=== PATIENT | female | born 1985 | race Hispanic/Latino ===

== ENCOUNTER 2020-01-21 14:09 | Day surgery (SDC) | payer SELFPAY ==
[2020-01-21] MEDS ORDERED: Lactated Ringers 1,000 ML IV SCH (14:30)
--- NOTE | 2020-01-21 15:07 | PCM.PREANE ---
Preanesthetic Assessment - Anesthesia/Transfusion/Family Hx Anesthesia History: No Prior Anesthesia Family History of Anesthesia Reaction: No Transfusion History: No Prior Transfusion(s) - Review of Systems General: No Symptoms Pulmonary: No Symptoms Cardiovascular: No Symptoms Neurological: No Symptoms Other: Reports: None - Physical Assessment NPO Status Date: 01/20/20 Height: 5 ft 1 in Weight: 60.781 kg ASA Class: 1 Mental Status: Alert & Oriented x3 Airway Class: Mallampati = 2 Dentition: Reports: Normal Dentition ROM/Head Extension: Full Lungs: Clear to Auscultation, Normal Respiratory Effort Cardiovascular: Regular Rate, Regular Rhythm - Lab Values: Laboratory Last Values WBC 8.81 K/uL (4.0-11.0) 01/21/20 14:40 RBC 3.91 M/uL (4.30-5.90) L 01/21/20 14:40 Hgb 12.2 g/dL (12.0-16.0) 01/21/20 14:40 Hct 36.9 % (36.0-46.0) 01/21/20 14:40 MCV 94.4 fL (80.0-98.0) 01/21/20 14:40 MCH 31.2 pg (27.0-32.0) 01/21/20 14:40 MCHC 33.1 g/dL (31.0-37.0) 01/21/20 14:40 RDW Std Deviation 43.0 fl (28.0-62.0) 01/21/20 14:40 RDW Coeff of Marcella 13 % (11.0-15.0) 01/21/20 14:40 Plt Count 241 K/uL (150-400) 01/21/20 14:40 MPV 9.60 fL (7.40-12.00) 01/21/20 14:40 Neut % (Auto) 77.2 % (48.0-80.0) 01/21/20 14:40 Lymph % (Auto) 18.2 % (16.0-40.0) 01/21/20 14:40 [place] % (Auto) 4.3 % (0.0-15.0) 01/21/20 14:40 Eos % (Auto) 0.2 % (0.0-7.0) 01/21/20 14:40 Baso % (Auto) 0.1 % (0.0-1.5) 01/21/20 14:40 Neut # (Auto) 6.8 K/uL (1.4-5.7) H 01/21/20 14:40 Lymph # (Auto) 1.6 K/uL (0.6-2.4) 01/21/20 14:40 [place] # (Auto) 0.4 K/uL (0.0-0.8) 01/21/20 14:40 Eos # (Auto) 0.0 K/uL (0.0-0.7) 01/21/20 14:40 Baso # (Auto) 0.0 K/uL (0.0-0.1) 01/21/20 14:40 Nucleated RBC % 0.0 /100WBC 01/21/20 14:40 Nucleated RBCs # 0 K/uL 01/21/20 14:40 - Allergies Allergies/Adverse Reactions: Allergies Allergy/AdvReac Type Severity Reaction Status Date / Time No Known Allergies Allergy Verified 01/21/20 14:37 - Anesthesia Plan Pre-Op Medication Ordered: None - Acknowledgements Anesthesia Type Planned: General Anesthesia Pt an Appropriate Candidate for the Planned Anesthesia: Yes Alternatives and Risks of Anesthesia Discussed w Pt/Guardian: Yes Pt/Guardian Understands and Agrees with Anesthesia Plan: Yes Additional Comments: PMH: tubal ectopic on R PLAN: GET PreAnesthesia Questionnaire Cardiovascular History: Reports: Other (See Below) Other Cardiovascular History: hypertensive during last Gastrointestinal History: Reports: Other (See Below) Other Gastrointestinal History: occasional heartburn Genitourinary History: Reports: UTI, Recurrent 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 [No Known Home Meds] 01/21/20 [History] - CURRENT (IN HOUSE) MEDS Current Meds: Current Medications Lactated Ringer's (Ringers, Lactated) 1,000 mls @ 125 mls/hr IV ASDIRECTED JAMAL Last Admin: 01/21/20 14:58 Dose: 125 mls/hr
[2020-01-21] MEDS ORDERED: Midazolam 1 MG/ML 2 ML SDV ONE (15:08)
[2020-01-21] MEDS ORDERED: fentaNYL 250 MCG/5 ML SDV ONE (15:08)
[2020-01-21] MEDS ORDERED: Propofol 200 MG/20 ML SDV ONE (15:08)
[2020-01-21] MEDS ORDERED: Lidocaine 2% 5 ML SDV ONE ×2 (15:08→15:42)
[2020-01-21] MEDS ORDERED: Rocuronium 100 MG/10 ML Syringe ONE (15:10)
[2020-01-21] MEDS ORDERED: Dexamethasone 4 MG/ML 5 ML MDV ONE (15:56)
[2020-01-21] MEDS ORDERED: Ondansetron 4 MG/2 ML SDV ONE (15:56)
[2020-01-21] MEDS ORDERED: Sugammadex Sodium 200 MG/2 ML VIAL ONE (16:00)
[2020-01-21] MEDS ORDERED: Octyl 2-Cyanoacrylate 1 Tube ONE ×2 (16:08→16:12)
--- NOTE | 2020-01-21 16:20 | PCM.HP.2 ---
H&P History of Present Illness - General Date of Service: 01/21/20 Admit Problem/Dx: Admission Diagnosis/Problem Admission Diagnosis/Problem Tubal ectopic Source of Information: Patient History Limitations: Reports: No Limitations - History of Present Illness Improves with: Reports: None Worsens with: Reports: None Associated Symptoms: Reports: No Other Symptoms - Related Data Allergies/Adverse Reactions: Allergies Allergy/AdvReac Type Severity Reaction Status Date / Time No Known Allergies Allergy Verified 01/21/20 14:37 Home Medications: Home Meds . 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: - Past Surgical History Head Surgeries/Procedures: Reports: None Social & Family History - Tobacco Use Smoking Status *Q: Never Smoker - Recreational Drug Use Recreational Drug Use: No Drug Use in Last 12 Months: No H&P Review of Systems - Review of Systems: Review Of Systems: See Below General: Reports: No Symptoms HEENT: Reports: No Symptoms Pulmonary: Reports: No Symptoms Cardiovascular: Reports: No Symptoms Gastrointestinal: Reports: No Symptoms Genitourinary: Reports: No Symptoms Musculoskeletal: Reports: No Symptoms Skin: Reports: No Symptoms Psychiatric: Reports: No Symptoms Neurological: Reports: No Symptoms Hematologic/Lymphatic: Reports: No Symptoms Immunologic: Reports: No Symptoms Exam - Exam Exam: See Below - Vital Signs Vital Signs: Last Vital Signs Temp 36.9 C 01/21/20 15:04 Pulse 89 01/21/20 15:04 Resp 16 01/21/20 15:04 BP 128/69 01/21/20 15:04 Pulse Ox 99 01/21/20 15:04 Weight: 60.781 kg - Exam General: Alert, Oriented, 4 HEENT: PERRLA, Hearing Intact, Mucosa Moist & [place], Nares Patent, Normal Nasal Septum, Posterior Pharynx Clear, Conjunctiva Clear, EOMI, EACs Clear, TMs Clear Neck: Supple, Trachea Midline, 2 Lungs: Clear to Auscultation, Normal Respiratory Effort Cardiovascular: Regular Rate, Regular Rhythm GI/Abdominal Exam: Normal Bowel Sounds, Soft, Non-Tender, No Organomegaly, No Distention, No Abnormal Bruit, No Mass, Pelvis Stable (Female) Exam: Normal External Exam, Normal Speculum Exam, Normal Bimanual Exam Rectal (Female) Exam: Normal Exam, Normal Rectal Tone Back Exam: Normal Inspection, Full Range of Motion, NT Extremities: Normal Inspection, Normal Range of Motion, Non-Tender, No Pedal Edema, Normal Capillary Refill Skin: Warm, Dry, Intact Neurological: Cranial Nerves Intact, Reflexes Equal Bilateral Neuro Extensive - Mental Status: Alert, Oriented x3, Normal Mood/Affect, Normal Cognition Neuro Extensive - Motor, Sensory, Reflexes: CN II-XII Intact, Normal Gait, Normal Reflexes Psychiatric: Alert, Normal Affect, Normal Mood - Patient Data Lab Results Last 24 hrs: Laboratory Results - last 24 hr 01/21/20 01/21/20 Range/Units 14:40 14:40 WBC 8.81 (4.0-11.0) K/uL RBC 3.91 L (4.30-5.90) M/uL Hgb 12.2 (12.0-16.0) g/dL Hct 36.9 (36.0-46.0) % MCV 94.4 (80.0-98.0) fL MCH 31.2 (27.0-32.0) pg MCHC 33.1 (31.0-37.0) g/dL RDW Std Deviation 43.0 (28.0-62.0) fl RDW Coeff of Marcella 13 (11.0-15.0) % Plt Count 241 (150-400) K/uL MPV 9.60 (7.40-12.00) fL Neut % (Auto) 77.2 (48.0-80.0) % Lymph % (Auto) 18.2 (16.0-40.0) % [place] % (Auto) 4.3 (0.0-15.0) % Eos % (Auto) 0.2 (0.0-7.0) % Baso % (Auto) 0.1 (0.0-1.5) % Neut # (Auto) 6.8 H (1.4-5.7) K/uL Lymph # (Auto) 1.6 (0.6-2.4) K/uL [place] # (Auto) 0.4 (0.0-0.8) K/uL Eos # (Auto) 0.0 (0.0-0.7) K/uL Baso # (Auto) 0.0 (0.0-0.1) K/uL Nucleated RBC % 0.0 /100WBC Nucleated RBCs # 0 K/uL Blood Type O POSITIVE Antibody Screen NEGATIVE Result Diagrams: 01/21/20 14:40 Sepsis Event Note - Focused Exam Vital Signs: Vital Signs Temp Pulse Resp BP Pulse Ox 01/21/20 15:04 36.9 C 89 16 128/69 99 Date Exam was Performed: 01/21/20 Time Exam was Performed: 16:19 Problem List Initiated/Reviewed/Updated: Yes Orders Last 24hrs: Active Orders 24 hr Category Date Time Status Patient Status [ADT] Routine ADT 01/21/20 16:17 Ordered Lactated Ringers [Ringers, Lactated] 1,000 ml Med 01/21/20 14:30 Active IV ASDIRECTED Resuscitation Status Routine Resus Stat 01/21/20 16:17 Ordered Medication Orders Lactated Ringer's (Ringers, Lactated) 1,000 mls @ 125 mls/hr IV ASDIRECTED JAMAL Last Admin: 01/21/20 14:58 Dose: 125 mls/hr Assessment/Plan Comment:: R. Tubal .
--- NOTE | 2020-01-21 16:21 | PCM.OPNOTE ---
- General Post-Op/Procedure Note Date of Surgery/Procedure: 01/21/20 Operative Procedure(s): Dignostc laorescopy, R.salpengectomy. Pre Op Diagnosis: R.tubal . Post-Op Diagnosis: Same Anesthesia Technique: General ET Tube Primary Surgeon: Chaim Machuca EBL in mLs: 100 Complications: None Condition: Good
--- NOTE | 2020-01-21 16:22 | PCM.DCSUM1 ---
Discharge Summary - Hospital Course Diagnosis: Stroke: No - Discharge Data Discharge Date: 01/21/20 Discharge Disposition: Home, Self-Care 01 Condition: Good - Referral to Home Health Primary Care Physician: PCP None - Patient Summary/Data Operative Procedure(s) Performed: Dignostc laorescopy, R.salpengectomy. - Patient Instructions Diet: Usual Diet as Tolerated Activity: As Tolerated Driving: Do Not Drive Showering/Bathing: May Shower Wound/Incision Care: Keep Operative Site/Wound Site Clean and Dry - Discharge Plan Home Medications: Home Meds . [No Known Home Meds] 01/21/20 [History] - Discharge Summary/Plan Comment DC Time >30 min.: Yes - General Info Date of Service: 01/21/20 Functional Status: Reports: Pain Controlled - Review of Systems General: Reports: No Symptoms HEENT: Reports: No Symptoms Pulmonary: Reports: No Symptoms Cardiovascular: Reports: No Symptoms Gastrointestinal: Reports: No Symptoms Genitourinary: Reports: No Symptoms Musculoskeletal: Reports: No Symptoms Skin: Reports: No Symptoms Neurological: Reports: No Symptoms Psychiatric: Reports: No Symptoms - Patient Data Vitals - Most Recent: Last Vital Signs Temp 36.9 C 01/21/20 15:04 Pulse 89 01/21/20 15:04 Resp 16 01/21/20 15:04 BP 128/69 01/21/20 15:04 Pulse Ox 99 01/21/20 15:04 Weight - Most Recent: 60.781 kg Lab Results - Last 24 hrs: Laboratory Results - last 24 hr 01/21/20 01/21/20 Range/Units 14:40 14:40 WBC 8.81 (4.0-11.0) K/uL RBC 3.91 L (4.30-5.90) M/uL Hgb 12.2 (12.0-16.0) g/dL Hct 36.9 (36.0-46.0) % MCV 94.4 (80.0-98.0) fL MCH 31.2 (27.0-32.0) pg MCHC 33.1 (31.0-37.0) g/dL RDW Std Deviation 43.0 (28.0-62.0) fl RDW Coeff of Marcella 13 (11.0-15.0) % Plt Count 241 (150-400) K/uL MPV 9.60 (7.40-12.00) fL Neut % (Auto) 77.2 (48.0-80.0) % Lymph % (Auto) 18.2 (16.0-40.0) % [place] % (Auto) 4.3 (0.0-15.0) % Eos % (Auto) 0.2 (0.0-7.0) % Baso % (Auto) 0.1 (0.0-1.5) % Neut # (Auto) 6.8 H (1.4-5.7) K/uL Lymph # (Auto) 1.6 (0.6-2.4) K/uL [place] # (Auto) 0.4 (0.0-0.8) K/uL Eos # (Auto) 0.0 (0.0-0.7) K/uL Baso # (Auto) 0.0 (0.0-0.1) K/uL Nucleated RBC % 0.0 /100WBC Nucleated RBCs # 0 K/uL Blood Type O POSITIVE Antibody Screen NEGATIVE Med Orders - Current: Current Medications Lactated Ringer's (Ringers, Lactated) 1,000 mls @ 125 mls/hr IV ASDIRECTED JAMAL Last Admin: 01/21/20 14:58 Dose: 125 mls/hr Discontinued Medications Dexamethasone (Dexamethasone) Confirm Administered Dose 20 mg .ROUTE .STK-MED ONE Stop: 01/21/20 15:57 Fentanyl (Sublimaze) Confirm Administered Dose 250 mcg .ROUTE .STK-MED ONE Stop: 01/21/20 15:09 Acetaminophen (Ofirmev) Confirm Administered Dose 100 mls @ as directed .ROUTE .STK-MED ONE Stop: 01/21/20 15:59 Lidocaine (Xylocaine-Mpf 2%) Confirm Administered Dose 5 ml .ROUTE .STK-MED ONE Stop: 01/21/20 15:09 Lidocaine (Xylocaine-Mpf 2%) Confirm Administered Dose 5 ml .ROUTE .STK-MED ONE Stop: 01/21/20 15:43 Midazolam HCl (Versed 1 Mg/Ml) Confirm Administered Dose 2 mg .ROUTE .STK-MED ONE Stop: 01/21/20 15:09 Octyl Cyanoacrylate (Dermabond Advance) Confirm Administered Dose 1 applic .ROUTE .STK-MED ONE Stop: 01/21/20 16:09 Octyl Cyanoacrylate (Dermabond Advance) Confirm Administered Dose 1 applic .ROUTE .STK-MED ONE Stop: 01/21/20 16:13 Ondansetron HCl (Zofran) Confirm Administered Dose 4 mg .ROUTE .STK-MED ONE Stop: 01/21/20 15:57 Propofol (Diprivan 20 Ml) Confirm Administered Dose 200 mg .ROUTE .STK-MED ONE Stop: 01/21/20 15:09 Rocuronium [place] (Zemuron) Confirm Administered Dose 100 mg .ROUTE .STK-MED ONE Stop: 01/21/20 15:11 Sugammadex Sodium (Bridion) Confirm Administered Dose 200 mg .ROUTE .STK-MED ONE Stop: 01/21/20 16:01 Tranexamic Acid (Cyklokapron) Confirm Administered Dose 1,000 mg .ROUTE .STK- MED ONE Stop: 01/21/20 15:59 - Exam General: Reports: Alert, Oriented HEENT: Reports: Pupils Equal, Pupils Reactive, EOMI, Mucous Membr. Moist/[place] Neck: Reports: Supple Lungs: Reports: Clear to Auscultation, Normal Respiratory Effort Cardiovascular: Reports: Regular Rate, Regular Rhythm GI/Abdominal Exam: Normal Bowel Sounds, Soft, Non-Tender, No Organomegaly, No Distention, No Abnormal Bruit, No Mass, Pelvis Stable (Female) Exam: Normal External Exam, Normal Speculum Exam, Normal Bimanual Exam Rectal (Female) Exam: Normal Exam, Normal Rectal Tone Back Exam: Reports: Normal Inspection, Full Range of Motion Extremities: Normal Inspection, Normal Range of Motion, Non-Tender, No Pedal Edema, Normal Capillary Refill Skin: Reports: Warm, Dry, Intact Wound/Incisions: Reports: Healing Well Neurological: Reports: No New Focal Deficit Psy/Mental Status: Reports: Alert, Normal Affect, Normal Mood
[2020-01-21] MEDS ORDERED: 50% Dextrose in Water 50 ML Syringe IVPUSH PRN (16:30)
[2020-01-21] MEDS ORDERED: Atropine 0.1 MG/ML 10 ML Syringe IVPUSH PRN ×2 (16:30)
[2020-01-21] MEDS ORDERED: Albuterol 0.083% 2.5 MG/3 ML Neb Soln NEB PRN (16:30)
[2020-01-21] MEDS ORDERED: Ketorolac 30 MG/ML SDV IVPUSH ONE (16:30)
[2020-01-21] MEDS ORDERED: EPINEPHrine 1:10,000 1 MG/10 ML Syringe IVPUSH PRN (16:30)
[2020-01-21] MEDS ORDERED: Naloxone 0.4 MG/ML Syringe IVPUSH PRN (16:30)
[2020-01-21] MEDS: fentaNYL 100 MCG/2 ML SDV IVPUSH PRN ×2 (16:59→17:07)
--- NOTE | 2020-01-21 17:25 | PCM.POSTAN ---
POST ANESTHESIA ASSESSMENT - MENTAL STATUS Mental Status: Alert, Oriented - VITAL SIGNS Vital Signs: Last Vital Signs Temp 36.5 C 01/21/20 16:25 Pulse 77 01/21/20 17:16 Resp 13 01/21/20 17:16 BP 109/64 01/21/20 17:16 Pulse Ox 98 01/21/20 17:16 - RESPIRATORY Respiratory Status: Respiratory Rate WNL, Airway Patent, O2 Saturation Stable - CARDIOVASCULAR CV Status: Pulse Rate WNL, Blood Pressure Stable - GASTROINTESTINAL GI Status: No Symptoms - POST OP HYDRATION Hydration Status: Adequate & Stable
--- NOTE | 2020-01-21 22:50 | PCM48HPAN ---
Post Anesthesia Note - EVALUATION WITHIN 48HRS OF ANESTHETIC Vital Signs in Normal Range: Yes Patient Participated in Evaluation: Yes Respiratory Function Stable: Yes Airway Patent: Yes Cardiovascular Function Stable: Yes Hydration Status Stable: Yes Pain Control Satisfactory: Yes Nausea and Vomiting Control Satisfactory: Yes Mental Status Recovered: Yes Vital Signs: Last Vital Signs Temp 36.8 C 01/21/20 17:55 Pulse 86 01/21/20 18:45 Resp 16 01/21/20 18:10 BP 113/67 01/21/20 18:45 Pulse Ox 98 01/21/20 18:10
--- NOTE | 2020-01-22 13:05 | OR ---
SURGEON: Chaim Machuca MD DATE OF PROCEDURE: 01/21/2020 PREOPERATIVE DIAGNOSES: Right tubal . POSTOPERATIVE DIAGNOSIS: Ruptured right tubal . OPERATIONS PERFORMED: Multiple-puncture diagnostic laparoscopy, peritoneal lavage, and right salpingectomy. PRIMARY SURGEON: Chaim Machuca MD CHIEF MINISTER: ALYSHA ruiz. ANESTHESIA: General with endotracheal intubation, Suri Castellanos and Dr. Reyna. ESTIMATED BLOOD LOSS: 100 mL including the blood in the peritoneal cavity upon entering. INDICATIONS FOR SURGERY: This patient is 34. She came to the office today for confirmation of . She was complaining of lower abdominal pain. Her HCG level was in excess of 28,000. Pelvic ultrasound confirmed right tubal with hematoperitoneum. PROCEDURE IN DETAIL: The patient was brought to the OR, properly identified, and after adequate level of anesthesia, the patient was placed into lithotomy position with an access to the abdomen and the vagina. The patient prepped and draped in sterile fashion as usual. Time-out was taken, and once was that done, the straight catheter was used to empty the bladder and then stab wound done beneath the umbilicus. The Veress needle was placed in the peritoneal cavity and that cavity insufflated with 3.5 L of carbon dioxide. Then, utilizing the Visiport technique, a 5 mm trocar placed beneath the umbilicus, and after that, the patient was placed in steep Trendelenburg. Hematoperitoneum was diagnosed and leaking right tubal and it was in the middle portion of the tube. 10/12 trocar placed in the left iliac fossa and 5 mm trocar in the right iliac fossa and then peritoneal lavage was performed removing all blood and blood clot. Then, using the Harmonic scalpel, the right tube was removed with the tubal and placed in endobag and removed through the 10/12 trocar. After that, thorough irrigation of the peritoneal cavity shows no oozing, no bleeding, and as this was done, after that, the procedure was ended. The multiple laparoscopic incisions were closed in layer after evacuating the air from the peritoneal cavity, and the instrument and sponge count was correct. The patient tolerated the procedure well, went to recovery room in stable general condition. JORDY / ELIZL /[id number]
== END 2020-01-21 19:45 | disposition home or self-care (01) ==
LOC: MERGE 14:09 → MW.SDS 14:09 → MW.MS 16:17 → MW.SDS 19:45
PROVIDERS: ATTEND Obstetrics & Gynecology
DX: O00.101 Right tubal pregnancy without intrauterine pregnancy (principal); Z87.440 Personal history of urinary (tract) infections
CPT/HCPCS: 36415; 59151; 85025; 86850; 86900; 86901; A9270; J0131; J1100; J1885; J2001; J2250; J2405; J2704; J3010; J3490; J7120

== ENCOUNTER 2023-08-22 17:27 | Emergency (ER) | payer BC ==
[2023-08-22] MEDS ORDERED: Sodium Chloride 0.9% 1,000 ML IV ONE (17:43)
[2023-08-22 18:31] LABS: BASOPHILS ABSOLUTE AUTO 0.05 K/uL (0.00-0.20); BASOPHILS PERCENT AUTO 0.7 % (0.0-1.0); EOSINOPHILS PERCENT AUTO 1.5 % (0.0-6.0); HEMATOCRIT 33.1 % (37.0-47.0); HEMOGLOBIN 11.6 g/dL (12.0-16.0); IMMATURE GRAN ABSOLUTE AUTO 0.02 K/uL (0.00-0.05); IMMATURE GRAN PERCENT AUTO 0.3 % (0.0-0.4); LYMPHOCYTES ABSOLUTE AUTO 1.95 K/uL (1.00-4.80); LYMPHOCYTES PERCENT AUTO 28.7 % (24.0-44.0); MEAN CORPUSCULAR HEMOGLOBIN 31.9 pg (28.0-32.0); MEAN CORPUSCULAR VOLUME 90.9 fL (83.0-99.0); MEAN PLATELET VOLUME 9.3 fL (9.4-12.3); MONOCYTES ABSOLUTE AUTO 0.42 K/uL (0.00-0.80); MONOCYTES PERCENT AUTO 6.2 % (0.0-8.0); NEUTROPHILS ABSOLUTE AUTO 4.25 K/uL (1.80-7.70); NEUTROPHILS PERCENT AUTO 62.6 % (41.0-71.0); PLATELET COUNT,PLT 233 K/uL (150-400); RED BLOOD CELL COUNT 3.64 M/uL (4.10-5.30); WHITE BLOOD CELL COUNT,WBC 6.79 K/uL (3.9-11.3)
[2023-08-22 18:50] LABS: INR 1.03 (0.86-1.11); PTT,PARTIAL THROMBOPLSTIN TIME 24.9 SEC (23.9-30.7)
[2023-08-22 19:05] LABS: ALANINE AMINOTRANSFERASE,ALT 31 IU/L (14-63); ALBUMIN 3.9 g/dL (3.4-5.0); ALKALINE PHOSPHATASE 83 U/L (46-116); ASPARTATE AMNIOTRANSFERASE,AST 19 IU/L (15-37); BILIRUBIN TOTAL 0.2 mg/dL (0.2-1.0); BLOOD UREA NITROGEN,BUN 14 mg/dL (7.0-18.0); CALCIUM 9.2 mg/dL (8.5-10.1); CARBON DIOXIDE,CO2 24.7 mmol/L (21.0-32.0); CHLORIDE,CL 99 mmol/L (98-107); CREATININE 0.7 mg/dL (0.6-1.0); GLUCOSE RANDOM 103 mg/dL (74-106); PROTEIN TOTAL,TP 7.9 g/dL (6.4-8.2); SODIUM,NA 135 mmol/L (136-145)
[2023-08-22 19:07] LABS: ESTIMATED GFR 113 mL/min (>60)
[2023-08-22 20:30] LABS: BASOPHILS ABSOLUTE AUTO 0.04 K/uL (0.00-0.20); BASOPHILS PERCENT AUTO 0.4 % (0.0-1.0); EOSINOPHILS ABSOLUTE AUTO 0.04 K/uL (0.00-0.45); EOSINOPHILS PERCENT AUTO 0.4 % (0.0-6.0); HEMATOCRIT 34.8 % (37.0-47.0); HEMOGLOBIN 12.1 g/dL (12.0-16.0); IMMATURE GRAN ABSOLUTE AUTO 0.03 K/uL (0.00-0.05); IMMATURE GRAN PERCENT AUTO 0.3 % (0.0-0.4); LYMPHOCYTES ABSOLUTE AUTO 1.97 K/uL (1.00-4.80); LYMPHOCYTES PERCENT AUTO 19.4 % (24.0-44.0); MEAN CORPUSCULAR HEMOGLOBIN 31.6 pg (28.0-32.0); MEAN CORPUSCULAR HGB CONC 34.8 g/dL (32.0-36.0); MEAN CORPUSCULAR VOLUME 90.9 fL (83.0-99.0); MEAN PLATELET VOLUME 9.3 fL (9.4-12.3); MONOCYTES ABSOLUTE AUTO 0.44 K/uL (0.00-0.80); MONOCYTES PERCENT AUTO 4.3 % (0.0-8.0); NEUTROPHILS ABSOLUTE AUTO 7.66 K/uL (1.80-7.70); NEUTROPHILS PERCENT AUTO 75.2 % (41.0-71.0); PLATELET COUNT,PLT 245 K/uL (150-400); RED BLOOD CELL COUNT 3.83 M/uL (4.10-5.30); WHITE BLOOD CELL COUNT,WBC 10.18 K/uL (3.9-11.3)
== END 2023-08-22 21:05 | disposition home or self-care (01) ==
LOC: MW.ED 17:27
DX: N93.9 Abnormal uterine and vaginal bleeding, unspecified (principal)
CPT/HCPCS: 36415; 76817; 80053; 84702; 85025; 85610; 85730; 86850; 86900; 86901; 96360; 99284; J7030; 99282